=== PATIENT | female | born 1985 | race Asian ===

== ENCOUNTER 2024-10-02 09:46 | Emergency (ER) | payer OTHER, SELFPAY ==
[2024-10-02 09:50] VITALS: BP 135/91; PULSE 100; RESP 18; TEMP 37; O2SAT 100; BMI 24.3
--- NOTE | 2024-10-02 10:03 | CRLHL7_ITS ---
For Patients: As a result of the Century Cures Act, medical imaging exams and procedure reports are released immediately into your electronic medical record. You may view this report before your referring provider. If you have questions, please contact your health care provider. CLINICAL HISTORY: Abdominal pain after eating FINDINGS: 3.9 x 4.7 x 4.7 centimeter hyperechoic lesion in the right hepatic lobe incompletely assessed by ultrasound there is a normal appearance of the hepatic IVC and proximal abdominal aorta. There is no evidence of ascites. Echogenic nodules within the gallbladder measure up to 5 millimeters stones versus polyps. The gallbladder wall measures 2 mm in thickness. The common bile duct is of normal size and measures 4 mm in diameter at the level of the robbie hepatis. The pancreas appears normal. There is no evidence of a stone or hydronephrosis within the right kidney. The right kidney measures 10.5 cm in length. IMPRESSION: 1. Several nodules in the gallbladder could represent stones and/or polyps measuring up to 5 millimeters. No sonographic findings for acute cholecystitis. 2. 4.7 centimeter hyperechoic lesion in the right hepatic lobe incompletely assessed potentially could represent a hemangioma. Nonurgent MR recommended for further evaluation. Dictated by Usha An MD @ 10/02/2024 12:06:46 PM (Electronically Signed)
--- NOTE | 2024-10-02 10:04 | ED.GENADULT ---
HPI - General Adult General Chief complaint: Abdominal Pain Stated complaint: Severe Abdominal Pain Time Seen by Provider: 10/02/24 09:55 Source: patient Mode of arrival: ambulatory Limitations: no limitations History of Present Illness HPI narrative: 39-year-old female presenting today with right upper quadrant abdominal pain started approximately 2 weeks ago. It comes and goes. Generally starts after she eats. It lasts for 45 minutes to a couple of hours and then subsides. Makes her feel nauseated but she has not vomited. She denies fevers or chills. Follow-up with have been regular. Patient had a tubal ligation and does not expect to be . She denies any urinary symptoms. Denies any other intra-abdominal surgery. Does not take any medications. Related Data Home Medications ?Medication ?Instructions ?Recorded ?Confirmed No Known Home Medications 10/02/24 10/02/24 Allergies Allergy/AdvReac Type Severity Reaction Status Date / Time No Known Drug Allergies Allergy Verified 10/02/24 09:55 Review of Systems Status of ROS: Reports: 10 or more systems reviewed and unremarkable except as noted in History and below Exam Narrative: Exam Narrative: Well-nourished well-developed patient in no acute distress. Alert and oriented. Answers questions appropriately. Mood and affect are appropriate. Thoughts are goal oriented and rational. No tangential or magical thinking noted. Patient speaks in full sentences without needing to catch her breath. HEENT: Normocephalic atraumatic. Pupils are equally round reactive to light. Extraocular muscles are intact. Conjunctivae are moist without any icterus noted. Moist mucous membranes. Posterior pharynx is normal. Neck is soft without any lymphadenopathy or thyromegaly. No masses are appreciated. Cardiovascular: Heart is regular rate and rhythm S1 and S2 are present without any murmurs. Lungs: Clear to auscultation bilaterally no wheezes rhonchi or rales are appreciated. Patient takes deep breaths without any discomfort. Abdomen: Soft and nontender nondistended with normal bowel sounds. She does have mild right upper quadrant tenderness, negative Chavez sign. No guarding or rebound. No masses or organomegaly appreciated. Extremities: Bilateral lower extremities are without edema. Skin: Well perfused without any obvious rashes. Const: Vital Signs, click to edit/add: Vital Signs - 24 hr 10/02/24 09:50 Temperature 98.6 F Pulse Rate [Right Pulse Oximeter] 100 Respiratory Rate 18 Blood Pressure [Ri ght Upper Arm] 135/91 H Pulse Oximetry 100 Oxygen Delivery Me thod Room Air Course Course ED Course: Differential diagnoses includes cholelithiasis, cholecystitis, gastritis, PUD. Blood work is entirely normal. Ultrasound shows multiple gallstones versus polyps. Given the patient's symptoms, these do likely represents stones. There was also a lesion of the liver that was not completed categorized. This was discussed with the patient. Given no evidence of laboratory, symptomatic, or image evidence of cholecystitis, do think it is safe for the patient to go home at this time and follow up with outpatient surgery. Vital Signs Vital signs: Initial Vital Signs Temperature 98.6 F 10/02/24 09:50 Temperature Source Temporal Artery Scan 10/02/24 09:50 Pulse Rate 100 10/02/24 09:50 Pulse Rhythm Regular 10/02/24 09:50 Pulse Strength 3+ Normal 10/02/24 09:50 Respiratory Rate 18 10/02/24 09:50 Blood Pressure 135/91 H 10/02/24 09:50 Blood Pressure Mean 105 10/02/24 09:50 Blood Pressure Position Sitting 10/02/24 09:50 Pulse Oximetry 100 10/02/24 09:50 Oxygen Delivery Method Room Air 10/02/24 09:50 Vital Signs Temperature 98.6 F 10/02/24 09:50 Pulse Rate 100 10/02/24 09:50 Respiratory Rate 18 10/02/24 09:50 Blood Pressure 135/91 H 10/02/24 09:50 Pulse Oximetry 100 10/02/24 09:50 Oxygen Delivery Method Room Air 10/02/24 09:50 Temperature 98.6 F 10/02/24 09:50 Pulse Rate 100 10/02/24 09:50 Respiratory Rate 18 10/02/24 09:50 Blood Pressure 135/91 H 10/02/24 09:50 Pulse Oximetry 100 10/02/24 09:50 Oxygen Delivery Method Room Air 10/02/24 09:50 Medical Decision Making MDM Narrative Medical decision making narrative: 39-year-old female with symptomatic cholelithiasis. Patient will follow-up as an outpatient. Liver lesion-patient will follow up with her primary care provider for further imaging. Lab Data Lab results reviewed: Yes I reviewed the patient's lab results Labs: Lab Results 10/02/24 Range/Units 10:14 WBC 7.11 (4.50-11.00) K/uL RBC 4.54 (4.00-5.20) m/uL Hgb 14.3 (12.0-16.0) gm/dL Hct 41.7 (33.0-51.0) % MCV 92 (80-100) fL MCH 32 (26-34) pg MCHC 34 (32-36) gm/dL RDW Coeff of Rubén 11.8 (11.5-15.5) % Plt Count 219 (140-440) K/uL Neut % (Auto) 72.9 H (42.0-72.0) % Lymph % (Auto) 18.3 L (20-44) % Page % (Auto) 5.8 (0.0-11.0) % Eos % (Auto) 2.5 (0.0-7.0) % Baso % (Auto) 0.4 (0.0-3.0) % Neut # (Auto) 5.20 (1.7-7.0) K/uL Lymph # (Auto) 1.30 (0.90-2.90) K/uL Page # (Auto) 0.40 (0.00-0.90) K/UL Eos # (Auto) 0.18 (0.00-0.50) K/uL Baso # (Auto) 0.03 (0.00-0.30) K/uL Abs Immat Gran (auto) 0.01 (0.00-0.30) K/uL Imm/Tot Granulo (auto) 0.1 % Sodium 137 (135-149) mmol/L Potassium 4.4 (3.6-5.1) mmol/L Chloride 104 (96-114) mmol/L Carbon Dioxide 24 (20-32) mmol/L Anion Gap 9 (7-15) mEq/L BUN 16 (5-24) mg/dL Creatinine 0.6 (0.5-1.5) mg/dL Estimated Creat Clear 99.56 Estimated GFR 117 ml/min Glucose 101 (60-115) mg/dL Lactate 1.5 (0.5-1.9) mmol/L Calcium 8.9 (8.4-10.6) mg/dL Total Bilirubin 0.4 (0.1-1.5) mg/dL Direct Bilirubin 0.1 (0.0-0.5) mg/dL AST 18 (12-35) U/L ALT 12 (4-35) U/L Alkaline Phosphatase 58 (40-150) U/L C-Reactive Protein 0.9 (0.5-1.0) mg/dL Total Protein 7.0 (6.0-8.3) g/dL Albumin 4.0 (3.3-5.0) g/dL Lipase 74 (23-300) U/L Imaging Data US - abdomen: Attestation: I have reviewed the pertinent imaging results. Radiologist's impression: CLINICAL HISTORY: Abdominal pain after eating FINDINGS: 3.9 x 4.7 x 4.7 centimeter hyperechoic lesion in the right hepatic lobe incompletely assessed by ultrasound there is a normal appearance of the hepatic IVC and proximal abdominal aorta. There is no evidence of ascites. Echogenic nodules within the gallbladder measure up to 5 millimeters stones versus polyps. The gallbladder wall measures 2 mm in thickness. The common bile duct is of normal size and measures 4 mm in diameter at the level of the robbie hepatis. The pancreas appears normal. There is no evidence of a stone or hydronephrosis within the right kidney. The right kidney measures 10.5 cm in length. IMPRESSION: 1. Several nodules in the gallbladder could represent stones and/or polyps measuring up to 5 millimeters. No sonographic findings for acute cholecystitis. 2. 4.7 centimeter hyperechoic lesion in the right hepatic lobe incompletely assessed potentially could represent a hemangioma. Nonurgent MR recommended for further evaluation. Discharge Plan Discharge Clinical Impression: Cholelithiasis, Lesion of liver Patient Disposition: Home, Self-Care Condition: Stable Additional Instructions: Your physical examination and workup today was consistent with gallstones. You should call the surgical clinic on Friday morning to schedule an appointment with a member of the surgical team to have an assessment done. There was also a lesion of the liver found on ultrasound. You should follow-up with your primary care provider to discuss further imaging. Recommend calling them in the morning on Friday as well. Okay to use ibuprofen for pain in the meantime, eat a very bland diet, avoid fatty foods. Prescriptions: No Action No Known Home Medications Follow Up/Referrals: Alize Anton MD [Primary Care Provider] - Stand Alone Forms: [employer] Info Instructions
[2024-10-02 10:18] LABS: Lactate* 1.5 mmol/L (0.5-1.9)
[2024-10-02 10:21] LABS: Basophils Absolute Auto 0.03 K/uL (0.00-0.30); Basophils Percent Auto 0.4 % (0.0-3.0); Eosinophils Absolute Auto 0.18 K/uL (0.00-0.50); Eosinophils Percent Auto 2.5 % (0.0-7.0); Hematocrit* 41.7 % (33.0-51.0); Hemoglobin* 14.3 gm/dL (12.0-16.0); Immature Granulocytes Abs Auto 0.01 K/uL (0.00-0.30); Immature Granulocytes Pct Auto 0.1 %; Lymphocytes Percent Auto 18.3 % (20-44); Mean Corpuscular HGB Conc 34 gm/dL (32-36); Mean Corpuscular Hemoglobin 32 pg (26-34); Mean Corpuscular Volume 92 fL (80-100); Monocytes Percent Auto 5.8 % (0.0-11.0); Neutrophils Percent Auto 72.9 % (42.0-72.0); Platelet Count* 219 K/uL (140-440); RDW Coefficient of Variation % 11.8 % (11.5-15.5); Red Blood Count* 4.54 m/uL (4.00-5.20); White Blood Count* 7.11 K/uL (4.50-11.00)
[2024-10-02 10:25] LABS: Slide Review Reflex No
[2024-10-02 10:36] LABS: Chloride* 104 mmol/L (96-114); Potassium* 4.4 mmol/L (3.6-5.1); Sodium* 137 mmol/L (135-149)
--- OUTSIDE RECORDS SUMMARY | 2024-10-02 10:38 | XMS_ITS | Clinical Summary ---
Author Organization [facility] Address [place], [place] [address] Care Team Providers Care Pest Controller Name Role Phone Alize Anton MD Primary Care Provider [phone] Allergies Active Allergy Reactions Criticality Noted Date Comments Pollen Extracts Other - Describe In Comment Field Medium 01/01/2021 Runny nose, itchy eyes, hard time breathing Medications fluticasone (50 mcg per actuation) nasal solution (FLONASE)Indicatio ns:Acute sinusitis, recurrence not specified, unspecified location Inhale 1 Colonia into both nostrils once daily. 1 Bottle 0 5 Active triamcinolone (ARISTOCORT) 0.1 % ointmentIndication s:Eczema, unspecified type Apply topically to affected area(s) 3 times daily. 1 Tube 1 0 Active olopatadine (PATADAY) 0.2 % ophthalmic solutionIndication s:Allergic conjunctivitis of right eye Place 1 Drop into right eye once daily. 5 mL 3 Active fexofenadine-pseud oephedrine, 60-120 MG, (Irais-D) 60-120 mg per tabletIndications: Allergic rhinitis, unspecified seasonality, unspecified trigger Take 1 Tablet by mouth two times daily. 180 Tablet 3 4 Active Active Problems Problem Noted Date Diagnosed Date ASCUS of cervix with negative high risk HPV 04/02 Overview (08/17/2021): 04/2018 ASCUS/HPV negative 07/2021 NIL/HPV negative Plan: Routine screening, Pap/HPV due 07/2026 Thyroid disease 02/20/2017 Overview (04/28/2018): 2017: thyroid antiboidies: increased risk for Mikhail's thyroiditis. Family hx colonic polyps 03/07/2014 Family history of malignant neoplasm of gastrointestinal tract 06/10/2013 Overview (06/10/2013): mother Vitiligo 02/14/2011 Other general counseling and advice for contraceptive management 08/11/2006 Allergic rhinitis, cause unspecified 08/11/2006 Encounters Date Type Department Care Team Description 07/02/2024 11:00 AM CDT Office Visit [facility] [address] [place] [id number] Kika Haas, ELIO Tipple Boss Exam (Go over uls from 07-02-24 ) 07/02/2024 9:30 AM CDT Ancillary Procedure [facility] [address] [place] [address] 07/02/2024 Travel from Last 3 Months Immunizations Name Administration Dates Next Due COVID-19 vaccine (Izooble NTech 30mcg/0.3mL) [facility] 03/22/2021,03/01/2021 Hepatitis B (Adult) 09/23/2011,07/10/2005 Human Papilloma Virus Vaccine 09/14/2009, 008,08/17/2007 Influenza, IIV3 (Age >=3 years) 07/10/2005 Influenza, IIV4 05/14/2016,06/30/2015 MMR 12/14/1996 Tdap 02/23/2024,09/23/2011 Family History Medical History Relation Name Comments Alcohol/Drug Father Cancer Maternal Grandfather lung an d brain Heart Disease Maternal Grandfather Cancer Maternal Grandmother lung Alcohol/Drug Maternal Uncle Allergies Mother COPD Mother Cancer-colon Mother late 30s Hyperlipidemia Mother Psychiatric illness Mother depressi on Psychiatric illness Sister 2 depressi on Relation Name Status Comments Father Alive Maternal Grandfather Maternal Grandmother Maternal Uncle Mother Alive Sister 1 Alive x3 Sister 2 Social History Tobacco Use Types Packs/Day Years Used Date Smoking Tobacco: Former Cigarettes 0.1 6 S tarted: 02/23/2021 Smokeless Tobacco: Never Tobacco Cessation:Counseling Given: Not Answered Alcohol Use Standard Drinks/Week Comments Yes 0 (1 standard drink = 0.6 oz pur e alcohol) social PHQ-2 Answer Date Recorded PHQ-2 TOTAL SCORE 1 10/08/2023 Social Connections Answer Date Recorded Frequency of Communication with Friends and Fami ly 0 05/30/2023 Financial Resource Strain Answer Date R ecorded Difficulty of Paying Living Expenses 3 05/30/2023 Difficulty of Paying Living Expenses Not on file 05/30/2023 Food Insecurity Answer Date Recorded Worried About Running Out of Food in the Last Ye ar 1 05/30/2023 Transportation Needs Answer Date Record ed Lack of Transportation (Medical) 1 05/30/2023 Housing Stability Answer Date Recorded Unable to Pay for Housing in the Last Year 1 05/30/2023 Comments No Sex and Gender Information Value Date Recorded Sex Assigned at Not on file Legal Sex Female 5:23 AM SUBSTATION ELECTRICIAN SUPERVISOR Gender Identity Not on file Sexual Orientation Not on file Obstetrics History Para Term AB IAB SAB Ectopic Multiple Livin g Live Births 0 0 0 0 0 0 0 0 0 0 0 Last Filed Vital Signs Vital Sign Reading Time Taken Comments Blood Pressure 118/60 07/02/2024 9:47 AM CDT Pulse 74 07/02/2024 9:47 AM CDT Temperature 36.7 C (98.1 F) 05/30/2023 12:27 PM CDT Respiratory Rate 16 05/30/2023 12:27 PM CDT Oxygen Saturation 98% 03/02/2024 8:14 AM CDT Inhaled Oxygen Concentration - - Weight 61.2 kg (135 lb) 07/02/2024 9:47 AM CDT Height 158.1 cm (5' 2.25) 10/08/2023 10:[address] Body Mass Index 24.49 10/08/2023 10:09 AM SUBSTATION ELECTRICIAN SUPERVISOR Plan of Treatment Upcoming Encounters Date Type Department Care Team (Late st Contact Info) Description 12/03/2024 9:15 AM CDT Telemedicine [address] [phone] [place] [address] [facility] [address] [place] [address] Health Maintenance Due Date Last Done Comments HIV for age 15-65 2000 Hepatitis C screening for age 18-79 2003 Colonoscopy through age 75 06/11/202306/11, 06/10/2013, 06/10/2013 COVID-19 vaccine series ( season) 2024 03/22/2021, 03/01/2021 Influenza for age 9-49 05/02/2024 6, 06/30/2015, 07/10/2005 BMI (ht and wt on same day) for age 18+ 10/08/2024 10/08/2023, 11/07/2021, 07/20/2021, Additional history exists Depression screening for age 12+ 10/08/2024 10/08/2023, 11/07/2021, 07/20/2021, Additional history exists Pap test for age 21-65 07/20/2026 , 07/20/2021, 04/28/2018, Additional history exists Tetanus booster 02/22/2034 02/23/2024, 09/23/2011 Tdap Completed 02/23/2024, 09/23/2011 Pneumococcal series for age 6-49 Aged Out No longer eligible based on patient's age to complete this topic Procedures Procedure Name Priority Date/Time Associated Diagnosis Comments US PELVIS COMPLETE TV Routine 07/02/2024 9:45 AM CDT Ovarian cyst, right DIRECTOR ENTERPRISE DATA ARCHITECTURE THIN PREP PAP DIAGNOSTIC IMAGED Routine 07/20/2021 8:00 AM SUBSTATION ELECTRICIAN SUPERVISOR ASCUS of cervix with negative high risk HPV COLONOSCOPY 06/11/2018 8:10 AM CDT from Last 3 Months or Most Recently Relevant to Health Maintenance Results * US PELVIS COMPLETE TV (07/02/2024 9:45 AM CDT) Anatomical Region Laterality Modality Pelvis, OVARIES, UTERUS Ultrasou nd Impressions 07/02/2024 3:27 PM CDT 1. The uterus has myomas as described above. They are stable when compared to the prior study. 2. The right ovary is normal in appearance. The previously noted cyst has resolved. 3. The left ovary is normal in appearance. Hugh Watson MD 07/02/2024 3:24 PM urturn [facility] [address] [place] [address] Narrative 07/02/2024 3:27 PM CDT Table formatting from the original result was not included. For Patients: Results are automatically released to your [employer] ([employer]) account once available, in compliance with federal regulations. This means that you may see your results before your provider has had a chance to review them. Please allow 2-3 business days for your provider to comment on the results. Gynecologic Ultrasound Date of exam: 07/02/2024 Indication for exam: 1. Ovarian cyst, right Requesting Provider: Fany Villarreal MD Comparison study: 02/27/24 TECHNIQUE: Transabdominal scan was not performed. Transvaginal scan was performed for improved visualization of the pelvic structures. FINDINGS: The uterus is present, anteverted, without deviation, and measures 8 x 4.4 x 5 cm. The myometrium is heterogeneous. The endometrial thickness is 6.7 mm. 2 myomas are noted in the uterus; they are as follows: Myoma #1 is subserosal, is located in the anterior and fundal segment of the uterus, and measures 1.9 x 1.3 x 1.9 cm. It does not appear to distort the endometrial lining. Myoma #2 is intramural, is located in the anterior and mid segment of the uterus, and measures 0.9 x 0.6 x 0.9 cm. It does not appear to distort the endometrial lining. The right ovary measures 2.6 X 1.6 X 2.2 cm and is normal in appearance. The left ovary measures 3.3 X 1.9 X 2.9 cm and is normal in appearance. Free fluid in the cul de sac: None us Fany Villarreal MD US Final Result * DIRECTOR ENTERPRISE DATA ARCHITECTURE THIN PREP PAP DIAGNOSTIC IMAGED (07/20/2021 8:00 AM SUBSTATION ELECTRICIAN SUPERVISOR) Case Report Gynecologic Cytology Report Case: [id number] Authorizing Provider: Alize Anton MD Collected: 07/20/2021 0800 Ordering Location: [facility] Received: 07/20/2021 1008 Clinic First Screen: Mir Garcia Pathologist: Pro Felix Jr., MD Specimen: DIRECTOR ENTERPRISE DATA ARCHITECTURE ThinPrep Vial Diagnostic, Cervical 08/06/2021 1:20 PM SUBSTATION ELECTRICIAN SUPERVISOR [facility] 24h00 [facility] ENTRAL LAB[facility] INTERPRETATION/ RESULT NEGATIVE FOR INTRAEPITHELIAL LESION OR MALIGNANCY (NIL) (none) 08/06/2021 1:20 PM SUBSTATION ELECTRICIAN SUPERVISOR [facility] ENTRAL LAB[facility] R NON-NEOPLASTIC FINDING(S) Parakeratosis 08/06/2021 1:20 PM SUBSTATION ELECTRICIAN SUPERVISOR [facility] 24h00 [facility] ENTRAL LABORATORY SPECIMEN ADEQUACY Satisfactory for evaluation Endocervical component present 08/06/2021 1:20 PM SUBSTATION ELECTRICIAN SUPERVISOR [facility] EN[facility] HPV REQUEST HPV and PAP 08/06/2021 1:20 PM SUBSTATION ELECTRICIAN SUPERVISOR [facility] Date of LMP 07/14/2021 08/06/2021 1:20 PM SUBSTATION ELECTRICIAN SUPERVISOR [facility] Last Pap Date 04/28/18 08/06/2021 1:20 PM SUBSTATION ELECTRICIAN SUPERVISOR [facility] Last Pap Result ASCUS 1:20 PM SUBSTATION ELECTRICIAN SUPERVISOR [facility] Abnormal Pap or [place] Bx in last 5 years Yes 08/06/2021 1:20 PM SUBSTATION ELECTRICIAN SUPERVISOR [facility] 24h00 [facility] ENTRAL [facility] Menstrual Status Regular Periods 08/06/2021 1:20 PM SUBSTATION ELECTRICIAN SUPERVISOR [facility] [place] Bx Done Today No 08/06/2021 1:20 PM SUBSTATION ELECTRICIAN SUPERVISOR [facility] Additional Information None Given 08/06/2021 1:20 PM SUBSTATION ELECTRICIAN SUPERVISOR [facility] Comment: Cytology is screened at [facility] Laboratory - [address], [place] [address] [facility] - [address], [place] [address] and [facility] - [address] [place] [address] [facility] - [address], [place] [address] Automated Review Successful 08/06/2021 1:20 PM SUBSTATION ELECTRICIAN SUPERVISOR [facility] Comment:Specimen processed s uccessfully by automated set up mechanic stamping machines device, ThinPrep Imaging System, [employer] ANCILLARY TESTING DIRECTOR ENTERPRISE DATA ARCHITECTURE HPV Ordered, Please see separate report 08/06/2021 1:20 PM SUBSTATION ELECTRICIAN SUPERVISOR [facility] Note The pap test is a screening technique, not a diagnostic procedure. It is used primarily to screen for squamous cancers and precursor lesions. Published studies have shown that it is subject to both false negative and false positive results. The pap test should not be used as the sole means to diagnose or exclude pre-malignant and malignant lesions. 08/06/2021 1:20 PM SUBSTATION ELECTRICIAN SUPERVISOR [facility] Other (Cervical) Non-Blood / Unknown 07/20/2021 8:00 AM SUBSTATION ELECTRICIAN SUPERVISOR 07/20/2021 10:08 AM SUBSTATION ELECTRICIAN SUPERVISOR us Alize Anton MD PATHOLOGY/CYTOLOGY Final R esult [facility] [address] [place] [address], [place] * COLONOSCOPY (06/11/2018 8:10 AM CDT) 06/11/2018 8:10 AM CDT Narrative Transcriptions Aung Grier MD - 06/11/2018 8:43 AM CDT Patient Name: Chao Allen Procedure Date: 06/11/2018 Gender: Female Date of : 1985 Admit Type: Ambulatory Procedure: Colonoscopy [facility] Indications/Pre-Op Diagnosis: Family history of colonic polyps in a first-degree relative Medications: Midazolam 4 mg IV, Fentanyl 75 microgramsIV Procedure Description: The patient had risks, benefits and alternatives explained to andgave informed consent. The patient had a stable cardiopulmonary status and judged an adequate candidate for conscious sedation. The colonoscope was passed through the anus and advanced to 6 cm into the ileum. The colonoscopy was performed without difficulty. Thepatient tolerated the procedure well. The quality of the bowel preparationwas good. The terminal ileum, ileocecal valve, appendiceal orifice, and rectum were photographed. Complications: No immediate complications. Estimated Blood Loss & Specimen: Estimated blood loss: none. Specimen collected - None Findings: The perianal and digital rectal examinations were normal. Retroflexion in the right colon was performed. The retroflexed view of the distal rectum and anal verge was normaland showed no anal or rectal abnormalities. The terminal ileum appeared normal. The entire examined colon appeared normal. Impressions/Post-Op Diagnosis: - The examined portion of the ileum was normal. - The entire examined colon is normal. - No specimens collected. Recommendation: - Discharge patient to home. - Resume previous diet. - Continue present medications. - Repeat colonoscopy in 5 years for surveillance. Moderate Sedation: Moderate (conscious) sedation was administered by the endoscopy nurse and supervised by the endoscopist. The following parameters were monitored: oxygen saturation, heart rate, respiratory rate, adequacyof pulmonary ventilation and reponse to care. Please refer to the patient's medical record flowsheets for moderate sedation details. please see sedation report above. Sedation was given under thedirection of the endoscopist. Moderate (conscious) sedation was administered by the endoscopy nurse and supervised by the endoscopist. The following parameters were monitored: oxygen saturation, heart rate, blood pressure, andresponse to care. Total physician intraservice time was 17 minutes. Aung Grier, 06/11/2018 8:43:41 AM This report has been signed electronically. Note Initiated On: 06/11/2018 8:10 AM Aung Grier MD PROCEDURE ORD Final Res ult from Last 3 Months or Most Recently Relevant to Health Maintenance Insurance [facility] Advance Directives * Full Code (Latest Code Status on File) Date Activated Date Inactivated Comments 02/05/2021 6:27 AM 02/05/2021 12:03 PM Question Answer Comments Code Status Discussion: Not Discussed Care Teams Pest Controller Relationship Specialty Start Date End Date Alize Anton MD [address] [facility] [place] [id number] PCP - General 03/18/06
[2024-10-02 10:39] LABS: Anion Gap 9 mEq/L (7-15); Blood Urea Nitrogen* 16 mg/dL (5-24); Carbon Dioxide* 24 mmol/L (20-32); Creatinine* 0.6 mg/dL (0.5-1.5); Est. Creatinine Clearance* 99.56; Estimated Glomerular Filt Rate 117 ml/min; Lipase* 74 U/L (23-300)
[2024-10-02 10:40] LABS: Alkaline Phosphatase* 58 U/L (40-150); Aspartate Amino Transferase* 18 U/L (12-35); Bilirubin Direct* 0.1 mg/dL (0.0-0.5); Bilirubin Total* 0.4 mg/dL (0.1-1.5); Calcium* 8.9 mg/dL (8.4-10.6); Glucose* 101 mg/dL (60-115)
[2024-10-02 10:41] LABS: Alanine Aminotransferase* 12 U/L (4-35)
[2024-10-02 10:42] LABS: C Reactive Protein* 0.9 mg/dL (0.5-1.0)
== END 2024-10-02 12:43 | disposition home or self-care (01) ==
PROVIDERS: Emergency Provider Family Medicine; PCP Family Medicine
DX: K80.80 Other cholelithiasis without obstruction (principal); K76.89 Other specified diseases of liver
CPT/HCPCS: 36415; 76705; 80048; 80076; 83605; 83690; 85025; 86140; 99284

== ENCOUNTER 2024-10-28 06:08 | Day surgery (SDC) | payer OTHER, SELFPAY ==
[2024-10-28] VITALS (13 sets, daily range): BP systolic 107–133; BP diastolic 66–100; PULSE 64–93; RESP 10–121; TEMP 36.6–37.4; O2SAT 96–100; BMI 29.6
--- OUTSIDE RECORDS SUMMARY | 2024-10-28 06:12 | XMS_ITS | Clinical Summary ---
Author Organization [facility] Address [address] [place] [address] Care Team Providers Care Automobile Body Worker Name Role Phone Alize Anton MD Primary Care Provider [phone] Allergies Active Allergy Reactions Criticality Noted Date Comments Pollen Extracts Other - Describe In Comment Field Medium 01/01/2021 Runny nose, itchy eyes, hard time breathing Medications fluticasone (50 mcg per actuation) nasal solution (FLONASE)Indicatio ns:Acute sinusitis, recurrence not specified, unspecified location Inhale 1 Madelia into both nostrils once daily. 1 Bottle [...] times daily. 180 Tablet 3 4 Active LORazepam (ATIVAN) 0.5 mg tabIndications:Elinor er lesion, right lobe Take 1 Tablet (0.5 mg) by mouth one time for 1 dose. take 30 minutes before the procedure. 1 Tablet 5 Active cephalexin 500 mg capsuleIndications :skin and skin structure infection Take 1 Capsule (500 mg) by mouth four times daily for 7 days. 28 Capsule 5 10/29/19 25 Active Active Problems Problem Noted Date Diagnosed Date Liver hemangioma 10/19/2024 ASCUS of cervix with negative high risk [...] Encounters Date Type Department Care Team Description 10/22/2024 11:44 AM CASING FINISHER AND STUFFER - 10/22/2024 2:07 PM CASING FINISHER AND STUFFER Emergency [facility] [address] [place] [address] Yaneli Cm MD Open nondisplaced fracture of distal phalanx of right middle finger, initial encounter (Primary Dx) Discharge Disposition: Home Self Care 10/22/2024 Telephone [facility] Orthoped[facility] [address] [address] Emmy Foster Appointment 10/22/2024 Travel 10/19/2024 7:40 AM CASING FINISHER AND STUFFER - 10/19/2024 11:59 PM CASING FINISHER AND STUFFER Hospital Encounter [facility] [address] [place] [address] Alize Anton MD Liver lesion, right lobe 10/19/2024 Travel 10/06/2024 8:00 AM CASING FINISHER AND STUFFER Office Visit [facility] [address] [place] [address] Alize Anton MD Hospital F/U (10/02 patient went in to hospital.); Abdominal Pain (Pain for two weeks; ultrasound found gall stones; also found lesion on liver, would like MRI.) 10/06/2024 Travel 10/02/2024 Orders Only [facility] Scanner 1 scan: (1-Ord) [place], ABDOMEN LMTD, 10/02/2024 from Last 3 Months Immunizations Name Administration Dates Next Due COVID-19 vaccine ([employer] [place] NTMedVentive 30mcg/0.3mL) [facility] 03/22/2021,03/01/2021 Hepatitis B (Adult) [...] Used Date Smoking Tobacco: Former Cigarettes 0.1 6.1 S tarted: 02/23/2021 Smokeless Tobacco: Never Tobacco [...] Housing in the Last Year 1 05/30/2023 Interpersonal Safety Answer Date Record ed Are you being hit, kicked, p ushed or yelled at (see row info)? No 10/22/2024 Interpersonal Safety Abuse 12 - 18 Not on file 10/22/2024 Interpersonal Safety Ambulatory Vulnerability No t on file 10/22/2024 Comments No Sex and Gender Information Value Date Recorded Sex Assigned at Not on file Legal Sex Female 5:23 AM CASING FINISHER AND STUFFER Gender Identity Not on file Sexual Orientation Not on file Obstetrics History Para Term AB IAB SAB Ectopic Multiple Livin g Live Births 0 0 0 0 0 0 0 0 0 0 0 Last Filed Vital Signs Vital Sign Reading Time Taken Comments Blood Pressure 117/91 10/22/2024 2:00 PM CASING FINISHER AND STUFFER Pulse 85 10/22/2024 2:00 PM CASING FINISHER AND STUFFER Temperature 37.7 C (99.8 F) 10/22/2024 11:34 AM CASING FINISHER AND STUFFER Respiratory Rate 14 10/22/2024 11:34 AM CASING FINISHER AND STUFFER Oxygen Saturation 98% 10/22/2024 2:00 PM CASING FINISHER AND STUFFER Inhaled Oxygen Concentration - - Weight 60.3 kg (133 lb) 10/22/2024 11:34 AM CASING FINISHER AND STUFFER Height 157.5 cm (5' 2) 10/22/2024 11:34 AM CASING FINISHER AND STUFFER Body Mass Index 24.33 10/22/2024 11:34 AM CASING FINISHER AND STUFFER Plan of Treatment Upcoming Encounters Date Type Department Care Team (Late st Contact Info) Description 12/03/2024 9:15 AM CDT Telemedicine [address] [phone] [place] [address] [facility] [address] [place], [place] [id number] Health Maintenance Due Date Last Done Comments [...] Procedure Name Priority Date/Time Associated Diagnosis Comments XR FINGER 2 VIEWS LEFT STAT 10/22/2024 1:24 PM CASING FINISHER AND STUFFER XR FINGER 3 VIEWS LEFT STAT 10/22/2024 11:59 AM CASING FINISHER AND STUFFER MR ABDOMEN LIVER WWO Routine 10/19/2024 7:47 AM CASING FINISHER AND STUFFER Liver lesion, right lobe SCAN-ULTRASOUND REPORT 10/02/2024 12:00 AM CASING FINISHER AND STUFFER [employer] THIN PREP PAP DIAGNOSTIC IMAGED Routine 07/20/2021 8:00 AM CASING FINISHER AND STUFFER ASCUS of cervix with negative high risk HPV COLONOSCOPY 06/11/2018 8:10 AM CDT from Last 3 Months or Most Recently Relevant to Health Maintenance Results * XR FINGER 2 VIEWS LEFT (10/22/2024 1:24 PM CASING FINISHER AND STUFFER) Anatomical Region Laterality Modality Finger Digital Radiogra phy 10/22/2024 1:45 PM CASING FINISHER AND STUFFER Narrative 10/22/2024 1:45 PM CASING FINISHER AND STUFFER For Patients: As a result of the Cures Act, medical imaging exams and procedure reports are released immediately into your electronic medical record. You may view this report before your referring provider. If you have questions, please contact your health care provider. Indication: Trauma. Pain. Technique: Two views of the left hand, 3rd digit. Comparison: Left hand 3rd digit radiographs earlier same day, dated 10/22/2024. Findings/Impression: Interval removal of the radiopaque foreign body since prior study. Persistent small avulsed fracture fragment at the volar aspect of the 3rd digit distal phalanx base. Round defect is seen at the base of the 3rd digit distal phalanx on PA view. Dictated by Florencia Orr MD @ 10/22/2024 1:45:38 PM (Electronically Signed) Procedure Note Florencia Orr MD - 10/22/2024 For Patients: As a result of the s , medical imagingexams and procedure reports are released immediately into your electronicmedical record. You may view this report before your referring provider.If you have questions, please contact your health care provider. Indication: Trauma. Pain. Technique: Two views of the left hand, 3rd digit. Comparison: Left hand 3rd digit radiographs earlier same day, dated 10/22/2024. Findings/Impression: Interval removal of the radiopaque foreign body since prior study.Persistent small avulsed fracture fragment at the volar aspect of the 3rddigit distal phalanx base. Round defect is seen at the base of the 3rddigit distal phalanx on PA view. Dictated by Florencia Orr MD @ 10/22/2024 1:45:38 PM (Electronically Signed) us Yaneli Cm MD GENERAL IMAGING Final Resu lt * XR FINGER 3 VIEWS LEFT (10/22/2024 11:59 AM CASING FINISHER AND STUFFER) Anatomical Region Laterality Modality Finger Digital Radiogra phy 10/22/2024 12:2 4 PM CASING FINISHER AND STUFFER Narrative 10/22/2024 12:24 PM CASING FINISHER AND STUFFER For Patients: As a result of the s Act, medical imaging exams and procedure reports are released immediately into your electronic medical record. You may view this report before your referring provider. If you have questions, please contact your health care provider. INDICATION: Trauma. TECHNIQUE: Left hand, 3rd digit radiographs, 3 views. COMPARISON: None. FINDINGS/IMPRESSION: Linear metallic foreign body measuring 2.4 cm within the 3rd distal phalangeal base, with an associated acute nondisplaced intra-articular fracture. No dislocation. Mild associated soft tissue edema. Dictated by Enrique Salgado MD @ 10/22/2024 12:24:38 PM (Electronically Signed) Procedure Note Enrique Salgado, DO - 10/22/2024 For Patients: As a result of the Cures Act, medical imagingexams and procedure reports are released immediately into your electronicmedical record. You may view this report before your referring provider.If you have questions, please contact your health care provider. INDICATION: Trauma. TECHNIQUE: Left hand, 3rd digit radiographs, 3 views. COMPARISON: None. FINDINGS/IMPRESSION: Linear metallic foreign body measuring 2.4 cm within the 3rd distalphalangeal base, with an associated acute nondisplaced intra-articularfracture. No dislocation. Mild associated soft tissue edema. Dictated by Enrique Salgado MD @ 10/22/2024 12:24:38 PM (Electronically Signed) us Yaneli Cm MD GENERAL IMAGING Final Resu lt * MR ABDOMEN LIVER WWO (10/19/2024 7:47 AM CASING FINISHER AND STUFFER) Anatomical Region Laterality Modality Abdomen, LIVER Magnetic Resonan ce 10/19/2024 11:0 5 AM CASING FINISHER AND STUFFER Narrative 10/19/2024 11:05 AM CASING FINISHER AND STUFFER For Patients: As a result of the Cures Act, medical imaging exams and procedure reports are released immediately into your electronic medical record. You may view this report before your referring provider. If you have questions, please contact your health care provider. INDICATION: Liver lesion. TECHNIQUE: Abdominal MRI with T1 in- and out of phase, T2, diffusion weighted, and progressively delayed post-contrast images. Intravenous gadolinium administered. FINDINGS: No fatty infiltration of the liver. 4.7 x 4.0 cm mass in segment 8 of the liver shows discontiguous peripheral puddling of contrast with centripetal fill-in. 5 mm cyst in the anterior aspect of segment 2. No other focal abnormalities identified in the visualized portions of the liver, spleen, pancreas, adrenal glands, and kidneys. No hydronephrosis. No adenopathy. Impression : 1. 4.7 cm hemangioma in segment 8 of the liver. No further evaluation is required. Dictated by Ming An MD @ 10/19/2024 11:05:52 AM (Electronically Signed) Procedure Note Ming An MD - 10/19/2024 For Patients: As a result of the Century Cures Act, medical imagingexams and procedure reports are released immediately into your electronicmedical record. You may view this report before your referring provider.If you have questions, please contact your health care provider. INDICATION: Liver lesion. TECHNIQUE: Abdominal MRI with T1 in- and out of phase, T2, diffusion weighted, andprogressively delayed post-contrast images. Intravenous gadoliniumadministered. FINDINGS: No fatty infiltration of the liver. 4.7 x 4.0 cm mass in segment 8 of the liver shows discontiguous peripheralpuddling of contrast with centripetal fill-in. 5 mm cyst in the anterior aspect of segment 2. No other focal abnormalities identified in the visualized portions of theliver, spleen, pancreas, adrenal glands, and kidneys. No hydronephrosis. No adenopathy. Impression : 1. 4.7 cm hemangioma in segment 8 of the liver. No further evaluation is required. Dictated by Ming An MD @ 10/19/2024 11:05:52 AM (Electronically Signed) us Alize Anton MD MR Final Resu lt * SCAN-ULTRASOUND REPORT (10/02/2024 12:00 AM CASING FINISHER AND STUFFER) Anatomical Region Laterality Modality Other us Scanner OTHER Final Result * [employer] THIN PREP PAP DIAGNOSTIC IMAGED (07/20/2021 8:00 AM CASING FINISHER AND STUFFER) Case Report Gynecologic Cytology Report Case: [id number] Authorizing Provider: Alize Anton MD Collected: 07/20/2021 0800 Ordering Location: [facility] Received: 07/20/2021 1008 Clinic First Screen: Mir Gacria Pathologist: Pro Felix Jr., MD Specimen: [employer] ThinPrep Vial Diagnostic, Cervical 08/06/2021 1:20 PM CASING FINISHER AND STUFFER [facility] EN[facility]AL [facility] INTERPRETATION/ RESULT NEGATIVE FOR INTRAEPITHELIAL LESION OR MALIGNANCY (NIL) (none) 08/06/2021 1:20 PM CASING FINISHER AND STUFFER [facility] ENTRAL LABORATORY R NON-NEOPLASTIC FINDING(S) Parakeratosis 08/06/2021 1:20 PM CASING FINISHER AND STUFFER [facility] ENTRAL LABORATORY SPECIMEN ADEQUACY Satisfactory for evaluation Endocervical component present 08/06/2021 1:20 PM CASING FINISHER AND STUFFER [facility] EN[facility]AL LAB[facility] HPV REQUEST HPV and PAP 08/06/2021 1:20 PM CASING FINISHER AND STUFFER [facility] EN[facility] LAB[facility] Date of LMP 07/14/2021 08/06/2021 1:20 PM CASING FINISHER AND STUFFER [facility] Last Pap Date 04/28/18 08/06/2021 1:20 PM CASING FINISHER AND STUFFER [facility] Last Pap Result ASCUS 1:20 PM CASING FINISHER AND STUFFER [facility] Abnormal Pap or Leedey Bx in last 5 years Yes 08/06/2021 1:20 PM CASING FINISHER AND STUFFER [facility] Menstrual Status Regular Periods 08/06/2021 1:20 PM CASING FINISHER AND STUFFER [facility] Leedey Bx Done Today No 08/06/2021 1:20 PM CASING FINISHER AND STUFFER [facility] Additional Information None Given 08/06/2021 1:20 PM CASING FINISHER AND STUFFER [facility] ENTRAL LABOR[facility]ORY Comment: Cytology is screened at [facility], Central Laboratory - [address], [place] [address] and [facility] - [address] [place] [address], [place] [address] and [facility] - [address] [place] [address] Interpreted at [facility] - [address] [place] [address], [place] [address] Automated Review Successful 08/06/2021 1:20 PM CASING FINISHER AND STUFFER [facility] ENTRDE LABORATORY Comment:Specimen processed s uccessfully by automated leather belt shaper device, ThinPrep Imaging System, [employer] ANCILLARY TESTING [employer]ER HPV Ordered, Please see separate report 08/06/2021 1:20 PM CASING FINISHER AND STUFFER [facility] Note The pap test is a screening technique, not a diagnostic procedure. It is used primarily to screen for squamous cancers and precursor lesions. Published studies have shown that it is subject to both false negative and false positive results. The pap test should not be used as the sole means to diagnose or exclude pre-malignant and malignant lesions. 08/06/2021 1:20 PM CASING FINISHER AND STUFFER [facility] Other (Cervical) Non-Blood / Unknown 07/20/2021 8:00 AM CASING FINISHER AND STUFFER 07/20/2021 10:08 AM CASING FINISHER AND STUFFER us Alize Anton MD PATHOLOGY/CYTOLOGY Final R esult [facility] [address] [place] [address], [place] * COLONOSCOPY (06/11/2018 8:10 AM CDT) 06/11/2018 8:10 AM CDT Narrative Transcriptions Aung Grier MD - 06/11/2018 8:43 AM CDT Patient Name: Chao Hernandezara Procedure Date: 06/11/2018 Gender: Female Date of : 1985 Admit Type: Ambulatory Procedure: Colonoscopy Proceduralist: Aung Garcia One Indications/Pre-Op Diagnosis: Family history of colonic polyps [...] Most Recently Relevant to Health Maintenance Insurance [employer] [place] [id number] Advance Directives * Full Code (Latest Code Status on File) Date Activated Date Inactivated Comments 02/05/2021 6:27 AM 02/05/2021 12:03 PM Question Answer Comments Code Status Discussion: Not Discussed Care Teams Automobile Body Worker Relationship Specialty Start Date End Date Alize Anton MD [address] [facility] [place] [address] PCP - General 03/18/06
[2024-10-28] MEDS: SODIUM CHLORIDE 0.9 % (FLUSH) 10 ML SYRINGE IVF (06:45)
[2024-10-28] MEDS: LACTATED RINGERS 1000 ML 1,000 ML 100 ML IV (06:45)
--- NOTE | 2024-10-28 07:25 | W.PM.H&PU ---
History & Physical Update History & Physical Update H&P Reviewed and patient assessed: The following changes are noted below H&P Updates: Patient underwent MRI to evaluate lesion seen on Ultrasound - per her description, this sounds like a benign hemangioma.
--- NOTE | 2024-10-28 07:26 | P.GSOP_ITS ---
Operative Note Date of procedure: 10/28/24 Pre-op diagnosis: Biliary colic secondary to cholelithiasis versus gallbladder polyp Post-op diagnosis: same Type of Procedure: Laparoscopic cholecystectomy Indications: The patient is a 39-year-old female with postprandial upper abdominal pain. A severe episode localizing to the right upper quadrant let her to the emergency department where she was found to have small gallstones versus polyps in the gallbladder. She was referred to surgery clinic to discuss cholecystectomy. After discussion of options, she elected to proceed with cholecystectomy. Procedure Description: After discussing the risks and benefits of the procedure, the patient signed informed consent.? The operative site was marked and the patient was brought to the operating room and placed on the operating table in supine position.? Care was taken to pad the patient's pressure points.?? The patient was then intubated by anesthesia.?? The operative site was then prepped and draped in the usual sterile fashion.? A time-out was then performed. Entrance to the abdomen was gained via a 5 mm Visiport in the left upper quadrant. The abdomen was insufflated and briefly surveyed for signs of injury. There was none. A 10 mm umbilical port was placed as well as 2 working ports along the right costal margin, all under direct vision. The patient was then placed in reverse Trendelenburg position with the right side up. The gallbladder fundus was grasped and retracted cephalad. The infundibulum was grasped. A combination of hook cautery and blunt dissection was used to carefully dissect out the cystic duct and artery until they could clearly be seen entering the gal lbladder without any intervening structures. The gallbladder was dissected off the cystic plate to achieve the critical view. Once this was achieved the cystic duct and artery were each clipped with 2 clips proximally and 1 clip distally and transected with the scissors. The gallbladder was then taken off of the liver bed and removed from the abdomen using an Endo-Catch bag. The gallbladder bed was surveyed for hemostasis which appeared excellent. The remaining ports were then removed and the abdomen desufflated. The umbilical port fascia was closed with 0 Vicryl. The skin was closed with absorbable subcuticular suture. Sterile dressings were then applied Instrument sponge and needle counts were correct at the end of the case. The patient was then woken and transferred to the PACU in stable condition. ? The patient tolerated the procedure well. Findings: No abnormal findings Anesthesia: GETA Surgeon: Mimi Eddy MD Estimated blood loss (mL): 5 Specimen: Gallbladder Condition: stable Disposition: PACU
[2024-10-28] MEDS: CEFAZOLIN 1 GM inj IVP (07:38)
[2024-10-28] MEDS: BUPIVACAINE 0.25% 30 ML 20 ML INJECTION (08:07)
--- NOTE | 2024-10-28 08:25 | W.ANESCHARGE ---
Anesthesia Charges Start Date/Time Anesthesia Start Date: 10/28/24 Anesthesia Start Time: 07:26 Stop Date/Time Anesthesia Stop Date: 10/28/24 Anesthesia Stop Time: 08:27 Coding CPT Codes CPT Codes: ANESTH SURG UPPER ABDOMEN - 58750 ([id number]) P2 - PATIENT W/MILD SYST DISEASE, QK - HELP DESK SPECIALIST 2-4 CNCRNT ANES PROC, QX - MONITORING COORDINATOR SVC W/ MD MED DIRECTION
--- NOTE | 2024-10-28 08:51 | W.ANESCHARGE ---
Anesthesia Charges Start Date/Time Anesthesia Start Date: 10/28/24 Anesthesia Start Time: 07:26 Stop Date/Time Anesthesia Stop Date: 10/28/24 Anesthesia Stop Time: 08:27 Coding CPT Codes CPT Codes: ANESTH SURG UPPER ABDOMEN - 88442 ([id number]) QK - LABEL CUTTER 2-4 CNCRNT ANES PROC, QX - TINNER HELPER SVC W/ MD MED DIRECTION, P2 - PATIENT W/MILD SYST DISEASE
[2024-10-28] MEDS: HYDROCODONE-ACETAMIN 5-325 MG 1 TAB PO (09:14)
== END 2024-10-28 10:05 | disposition home or self-care (01) ==
PROVIDERS: PCP Family Medicine; Visit Provider Surgery
PROC: 0FT44ZZ Resection of Gallbladder, Percutaneous Endoscopic Approach (ICD-10-PCS; CPT 47562; principal; 2024-10-28 07:30)
DX: K81.1 Chronic cholecystitis (principal); R10.11 Right upper quadrant pain; K76.9 Liver disease, unspecified
CPT/HCPCS: 47562; 00790; 88304; A9270; J0330; J0665; J0690; J1100; J1885; J2250; J2405; J2704; J2710; J3010; J7120

== ENCOUNTER 2024-11-09 09:59 | Outpatient (CLI) | payer OTHER, SELFPAY | END 2024-11-09 10:00 | disposition home or self-care (01) | PROVIDERS: PCP Family Medicine; Visit Provider Surgery | DX: R10.9 Unspecified abdominal pain (principal) | CPT/HCPCS: 80076; 83690 ==